=== PATIENT | female | born 1965 | race Caucasian/White ===

== ENCOUNTER 2017-10-26 21:55 | Emergency (ER) | payer SELFPAY ==
[~2017-10-26] VITALS: Ht 162.6 cm; Wt 107.0 kg
[2017-10-26 23:05] LABS: BASOPHIL % 0.3 % (0-2); PLATELET COUNT 231 x10^3mcL (130-400)
[2017-10-26 23:06] LABS: RED CELL DISTRIBUTION WIDTH 15.1 % (11.5-14.5)
[2017-10-26 23:10] LABS: CALCIUM 8.9 mg/dL (8.5-10.1); CARBON DIOXIDE 29.8 mmol/L (21-32); CREATININE SERUM 1.2 mg/dL (0.6-1.0); POTASSIUM SERUM 3.8 mmol/L (3.5-5.1)
[2017-10-26 23:21] LABS: UA SPECIFIC GRAVITY <=1.005 (1.005-1.035); microscopic required? YES; urine erythrocyte TRACE (NEGATIVE)
[2017-10-26 23:26] LABS: BILIRUBIN TOTAL 0.56 mg/dL (0.20-1.00); TOTAL PROTEIN, SERUM 7.6 g/dL (6.4-8.2)
[2017-10-26 23:27] LABS: ALBUMIN 3.2 g/dL (3.4-5.0)
[2017-10-27 04:20] VITALS: BP 119/72
== END 2017-10-27 04:20 | disposition home or self-care (01) ==
LOC: ED 21:55
PROVIDERS: Emergency Medicine
DX: N28.89 Other specified disorders of kidney and ureter (principal); R10.32 Left lower quadrant pain; R50.9 Fever, unspecified; I10 Essential (primary) hypertension; E11.9 Type 2 diabetes mellitus without complications; Z86.73 Personal history of transient ischemic attack (TIA), and cerebral infarction without residual deficits
CPT/HCPCS: J2270; J2405; J2543; J7030; Q9967